=== PATIENT | female | born 1995 | race Caucasian/White ===

== ENCOUNTER 2019-11-07 17:44 | Emergency (ER) | payer OTHER ==
[2019-11-07 19:39] VITALS: BP 127/76
[2019-11-07] MEDS ORDERED: DEXAMETHASONE 4 MG TABLET PO ONE (19:43)
[2019-11-07] MEDS ORDERED: FAMOTIDINE 20 MG TABLET PO ONE (19:44)
--- NOTE | 2019-11-07 19:49 | ER Document Report ---
HPI - HPI Patient complains to provider of: Insect sting Time Seen by Provider: 11/07/19 19:40 Onset: This afternoon Onset/Duration: Sudden, Better Pain Level: Denies Context: Patient reports getting stung by an insect twice to the right hand around 230 this afternoon. Patient complains of right hand swelling. Patient states initially the hand was much more swollen and has started to improve she did take Benadryl around 3:00. Patient denies any difficulty breathing or swallowing. Associated Symptoms: denies: Chest pain, Nonproductive cough, Productive cough, Headache, Nausea, Vomiting Exacerbated by: Denies Relieved by: Denies Similar symptoms previously: No Recently seen / treated by doctor: No - ROS ROS below otherwise negative: Yes Systems Reviewed and Negative: Yes All other systems reviewed and negative - CONSTITUTIONAL Constitutional: DENIES: Fever, Chills - EENT EENT: DENIES: Sore Throat - NEURO Neurology: DENIES: Headache - CARDIOVASCULAR Cardiovascular: DENIES: Chest pain - RESPIRATORY Respiratory: DENIES: Trouble Breathing, Coughing - GASTROINTESTINAL Gastrointestinal: DENIES: Nausea - REPRODUCTIVE Reproductive: DENIES: : - MUSCULOSKELETAL Musculoskeletal: REPORTS: Extremity pain, Swelling - DERM Skin Color: Erythema Skin Problems: None Past Medical History - General Information source: Patient - Social History Smoking Status: Never Smoker Chew tobacco use (# tins/day): No Frequency of alcohol use: None Drug Abuse: None Lives with: Family Family History: Reviewed & Not Pertinent - Medical History Medical History: Negative Surgical Hx: Negative Vertical Provider Document - CONSTITUTIONAL Agree With Documented VS: Yes Exam Limitations: No Limitations General Appearance: WD/WN, No Apparent Distress - HEENT HEENT: Atraumatic, Normal ENT Exam, Normocephalic Notes: No angioedema - NECK Neck: Normal Inspection, Supple - RESPIRATORY Respiratory: Breath Sounds Normal, No Respiratory Distress - CARDIOVASCULAR Cardiovascular: Regular Rate, Regular Rhythm Pulses: Normal: Radial - MUSCULOSKELETAL/EXTREMETIES Musculoskeletal/Extremeties: MAEW, Tender, Edema - 2+ edema to right hand, mild erythema to hand - NEURO Level of Consciousness: Awake, Alert, Appropriate Motor/Sensory: No Motor Deficit - DERM Integumentary: Warm, Dry Course - Re-evaluation Re-evalutation: 11/07/19 Patient with swelling and mild erythema to right hand. Patient reports swelling and redness is actually improved since taking Benadryl. No concern for infection, suspect likely local inflammatory response after the sting. No concern for anaphylaxis. Patient agreeable with discharge plan of care at this time. - Vital Signs Vital signs: Temp Pulse Resp BP Pulse Ox 99.5 F 87 18 127/76 H 96 11/07/19 19:38 11/07/19 19:38 11/07/19 19:38 11/07/19 19:38 11/07/19 19:38 Discharge - Discharge Clinical Impression: Insect sting Qualifiers: Encounter type: initial encounter Injury intent: accidental or unintentional Qualified Code(s): T63.481A - Toxic effect of venom of other arthropod, accidental (unintentional), initial encounter Hand swelling Qualifiers: Laterality: right Qualified Code(s): M79.89 - Other specified soft tissue disorders Condition: Stable Disposition: HOME, SELF-CARE Instructions: Steroid Medication, Swollen Insect Bite or Sting ([facility]) Additional Instructions: Return immediately for any new or worsening symptoms Followup with your primary care provider, call tomorrow to make a followup appointment Take Benadryl [id number] every 6 hours to help with your symptoms Keep extremity elevated Take Pepcid twice a day as needed to help with your symptoms Referrals: KEENAN MORFIN MD [Primary Care Provider] - Follow up as needed
== END 2019-11-07 19:45 | disposition home or self-care (01) ==
LOC: ER 17:44
DX: T63.481A Toxic effect of venom of other arthropod, accidental (unintentional), initial encounter (principal); M79.89 Other specified soft tissue disorders; X58.XXXA Exposure to other specified factors, initial encounter
CPT/HCPCS: 99281; J8540